=== PATIENT | female | born 1995 | race Caucasian/White ===

== ENCOUNTER 2016-11-21 12:54 | Emergency (ER) | payer OTHER ==
[2016-11-21 13:06] VITALS: BP 119/81
--- NOTE | 2016-11-21 13:53 | EDM.PDOC ---
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 She says she felt it travel up her arm. She has no open skin wounds or hunter. She has no chest pain or shortness of breath. 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 She' s had no problems since then. left upper arm Pain Score (Numeric/FACES): 10 - Related Data Allergies Allergy/AdvReac Type Severity Reaction Status Date / Time No Known Allergies Allergy Verified 11/21/16 13:06 Home Meds: Home Meds . [No Known Home Meds] 11/21/16 [History] Past Medical History - Past Surgical History Cardiovascular Surgical History: Reports: Other (See Below) Other Cardiovascular Surgeries/Procedures: surgical repair of "2 holes in my heart when I was little" Social & Family History - Family History Family Medical History: Noncontributory - Tobacco Use Smoking Status *Q: Never Smoker Second Hand Smoke Exposure: No - Caffeine Use Caffeine Use: Reports: Soda - Recreational Drug Use Recreational Drug Use: No Review of Systems - Review of Systems Review Of Systems: See Below Respiratory: Reports: No Symptoms. Denies: Shortness of Breath Cardiovascular: Reports: No Symptoms. Denies: Chest Pain, Lightheadedness GI/Abdominal: Reports: No Symptoms. Denies: Abdominal Pain, Nausea, Vomiting Musculoskeletal: Reports: Arm Pain Skin: Reports: No Symptoms. Denies: Wound, Burn(s) ED EXAM, GENERAL - Physical Exam Exam: See Below Exam Limited By: No Limitations General Appearance: Alert, WD/WN, No Apparent Distress Respiratory/Chest: No Respiratory Distress, Lungs Clear, Normal Breath Sounds, No Accessory Muscle Use, Chest Non-Tender Cardiovascular: Normal Peripheral Pulses, Regular Rate, Rhythm, No Edema, Systolic Murmur (05/03 ) GI/Abdominal: Normal Bowel Sounds, Soft, Non-Tender Extremities: Normal Inspection, Normal Range of Motion, Non-Tender, Arm Pain ( to forearm ). No: Slow Capillary Refill, Joint Swelling, Increased Warmth, Pallor, Redness Neurological: Alert, Oriented, Normal Cognition, No Motor/Sensory Deficits Skin Exam: Warm, Dry, Intact, Other (no skin hunter or wounds. no entrance or exit wounds appreciated. ) EKG INTERPRETATION EKG Date: 11/21/16 Time: 14:00 Rhythm: NSR Rate (Beats/Min): 63 [place]: Normal P-Wave: Present QRS: RBBB ST-T: Normal QT: Normal EKG Interpretation Comments: No acute ischemic changes. QTC is normal. Patient has no physical exam findings to indicate a severe electrical shock. EKG reveals RBBB but no ischemic changes or prolonged Qtc. Will discharge home. Course - Vital Signs Last Recorded V/S: Last Vital Signs Temp 97.8 F 11/21/16 12:55 Pulse 70 11/21/16 12:55 Resp 18 11/21/16 12:55 BP 119/81 11/21/16 12:55 Pulse Ox 100 11/21/16 12:55 - Orders/Labs/Meds Orders: Active Orders 24 hr Category Date Time Status EKG 12 Lead [EKG Documentation Completion] [RC] STAT Care 11/21/16 13:41 Active Departure - Departure Time of Disposition: 14:16 Disposition: Home, Self-Care 01 Condition: Good Clinical Impression: Electrical shock of hand Qualifiers: Encounter type: initial encounter Qualified Code(s): T75.4XXA - Electrocution, initial encounter - Discharge Information Instructions: Electric Shock Injury Referrals: PCP,None [Primary Care Provider] - Forms: ED Department Discharge Additional Instructions: Return to ER if you develop chest pain, palpitations or any additional concerns - My Orders Last 24 Hours: My Active Orders 11/21/16 13:41 EKG 12 Lead [EKG Documentation Completion] [RC] STAT - Assessment/Plan Last 24 Hours: My Active Orders 11/21/16 13:41 EKG 12 Lead [EKG Documentation Completion] [RC] STAT
== END 2016-11-21 14:46 | disposition home or self-care (01) ==
LOC: JD.ED 12:54
DX: T75.4XXA Electrocution, initial encounter (principal); Z98.890 Other specified postprocedural states; X58.XXXA Exposure to other specified factors, initial encounter; Y99.0 Civilian activity done for income or pay
CPT/HCPCS: 93005; 99282; 99285

== ENCOUNTER 2017-01-02 16:25 | Emergency (ER) | payer SELFPAY ==
[2017-01-02 16:45] VITALS: BP 110/69
[2017-01-02] MEDS ORDERED: Alum Hydrox/Mag Hydrox/Simeth 30 ML, Lidocaine 2% 15 ML PO ONE ×2 (17:13)
--- NOTE | 2017-01-02 17:14 | EDM.PDOC ---
ED HPI GENERAL MEDICAL PROBLEM - General Chief Complaint: Abdominal Pain Stated Complaint: Abdominal pain Time Seen by Provider: 01/02/17 17:00 Source of Information: Reports: Patient, RN Notes Reviewed History Limitations: Reports: No Limitations - History of Present Illness INITIAL COMMENTS - FREE TEXT/NARRATIVE: 21 year old female presents to the ED with complaints of abdominal pain, bloating and nausea. Symptoms have been intermittent and mild for some time however The pain has worsened over the past 12 hours. This morning she awoke with severe abdominal pain. She reports epigastric pain that radiated up into her chest and down throughout her entire abdomen. She has nausea but no vomiting or diarrhea. She has noticed that spicy food, dairy products, and fatty foods upset her stomach. She drinks large amounts of Mountain Dew everyday. She does not drink coffee. She denies alcohol use. She uses marijuana on a regular basis. When asked how much she smokes she replied "a lot." She has used marijuana for several years. She says the marijuana seems to help her symptoms. She denies improvement with hot showers or baths. She denies any additional drug use. She denies urinary symptoms. LMP is unknown. She is not on any forms of control. No previous abdominal surgeries. 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 Abdomen Pain Score (Numeric/FACES): 10 - Related Data Allergies Allergy/AdvReac Type Severity Reaction Status Date / Time No Known Allergies Allergy Verified 11/21/16 13:06 Home Meds: Home Meds Omeprazole 20 mg PO BID #28 cap.cr 01/02/17 [Rx] Sucralfate [Carafate] 1 gm PO QID #40 tablet 01/02/17 [Rx] Past Medical History 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 - Past Surgical History Cardiovascular Surgical History: Reports: Other (See Below) Other Cardiovascular Surgeries/Procedures: surgical repair of "2 holes in my heart when I was little" Social & Family History - Family History Family Medical History: Noncontributory - Tobacco Use Smoking Status *Q: Never Smoker Second Hand Smoke Exposure: No - Caffeine Use Caffeine Use: Reports: Soda - Recreational Drug Use Recreational Drug Use: No ED ROS GENERAL - Review of Systems Review Of Systems: See Below Constitutional: Reports: No Symptoms. Denies: Fever, Chills, Diaphoresis Respiratory: Reports: No Symptoms. Denies: Shortness of Breath Cardiovascular: Reports: No Symptoms. Denies: Chest Pain, Syncope GI/Abdominal: Reports: Abdominal Pain, Decreased Appetite, Distension, Nausea. Denies: Constipation, Diarrhea, Vomiting : Reports: No Symptoms. Denies: Dysuria, Flank Pain, Frequency ED EXAM, GI/ABD - Physical Exam Exam: See Below Exam Limited By: No Limitations General Appearance: Alert, WD/WN, No Apparent Distress Respiratory/Chest: No Respiratory Distress, Lungs Clear, Normal Breath Sounds, No Accessory Muscle Use, Chest Non-Tender Cardiovascular: Normal Peripheral Pulses, Regular Rate, Rhythm, Systolic Murmur GI/Abdominal Exam: Normal Bowel Sounds, Soft, No Organomegaly, No Distention, Tender (epigastric ), Other (mild tenderness over the entire abdomen, most significant to the epigastric region ). No: Guarding, Rigid, Rebound Back Exam: Normal Inspection, Full Range of Motion. No: CVA Tenderness (L), CVA Tenderness (R) Neurological: Alert, Oriented, Normal Cognition, No Motor/Sensory Deficits Course - Vital Signs Last Recorded V/S: Last Vital Signs Temp 98.1 F 01/02/17 16:36 Pulse 72 01/02/17 16:36 Resp 18 01/02/17 16:36 BP 110/69 01/02/17 16:36 Pulse Ox 100 01/02/17 16:36 - Orders/Labs/Meds Orders: Active Orders 24 hr Category Date Time Status HCG QUALITATIVE,URINE [URCHEM] Stat Lab 01/02/17 17:13 Uncollected UA W/MICROSCOPIC [URIN] Stat Lab 01/02/17 17:13 Uncollected Labs: Laboratory Tests 01/02/17 01/02/17 01/02/17 Range/Units 17:58 17:58 17:58 WBC 5.31 (3.98-10.04) K/mm3 RBC 3.88 L (3.98-5.22) M/mm3 Hgb 11.3 (11.2-15.7) gm/L Hct 32.2 L (34.1-44.9) % MCV 83.0 (79.4-94.8) fl MCH 29.1 (25.6-32.2) pg MCHC 35.1 (32.2-35.5) g/dl RDW Std Deviation 37.2 (36.4-46.3) fL Plt Count 176 L (182-369) K/mm3 MPV 10.2 (9.4-12.3) fl Neut % (Auto) 64.2 (34.0-71.1) % Lymph % (Auto) 21.7 (19.3-51.7) % [place] % (Auto) 12.4 (4.7-12.5) % Eos % (Auto) 1.3 (0.7-5.8) Baso % (Auto) 0.2 (0.1-1.2) % Neut # (Auto) 3.41 (1.56-6.13) K/mm3 Lymph # (Auto) 1.15 L (1.18-3.74) K/mm3 [place] # (Auto) 0.66 H (0.24-0.36) K/mm3 Eos # (Auto) 0.07 (0.04-0.36) K/mm3 Baso # (Auto) 0.01 (0.01-0.08) K/mm3 Sodium 140 (136-145) mEq/L Potassium 3.4 L (3.5-5.1) mEq/L Chloride 106 (98-107) mEq/L Carbon Dioxide 24 (21-32) mEq/L Anion Gap 13.4 (5-15) BUN 7 (7-18) mg/dL Creatinine 0.6 (0.55-1.02) mg/dL Est Cr Clr Drug Dosing 156.30 mL/min Estimated GFR (MDRD) > 60 (>60) mL/min BUN/Creatinine Ratio 11.7 L (14-18) Glucose 95 (74-106) mg/dL Calcium 9.2 (8.5-10.1) mg/dL Total Bilirubin 0.7 (0.2-1.0) mg/dL AST 10 L (15-37) U/L ALT 20 (14-59) U/L Alkaline Phosphatase 53 (46-116) U/L C-Reactive Protein < 0.2 (<1.0) mg/dL Total Protein 6.5 (6.4-8.2) g/dl Albumin 4.0 (3.4-5.0) g/dl Globulin 2.5 gm/dL Albumin/Globulin Ratio 1.6 (1-2) Lipase 71 L (73-393) U/L H. pylori IgG Antibody Negative (NEGATIVE) Meds: Medications Discontinued Medications Generic Name Dose Route Start Last Admin Trade Name Christopher PRN Reason Stop Dose Admin Al Hydroxide/Mg Hydroxide 30 0 ml 01/02/17 17:13 01/02/17 17:24 ml/ Lidocaine HCl 15 ml PO 01/02/17 17:14 45 ml ONETIME ONE Administration Ketorolac Tromethamine 60 mg 01/02/17 19:18 01/02/17 20:05 Toradol IM 01/02/17 19:19 60 mg ONETIME ONE Administration Pantoprazole Sodium 40 mg 01/02/17 19:20 01/02/17 20:05 Protonix PO 01/02/17 19:21 40 mg ONETIME ONE Administration - Re-Assessments/Exams Free Text/Narrative Re-Assessment/Exam: CBC and CMP are unremarkable. CRP WNL. Lipase WNL. H Pylori is negative. Acute findings ruled out at this time. Patient was given GI cocktail and reported worsening of pain. She was then given Toradol and Protonix. She has moderate improvement with this. We added carafate prior to discharge. Patient will be referred to our clinic to establish care and follow-up regarding her abdominal pain. Will start her on omeprazole 20mg PO BID x14 days and carafate 1 gm PO QID for gastritis symptoms. She was instructed to f/u in the clinic for further evaluation and management of her abdominal pain. If she does not improve with the omeprazole and carafate, I would recommend gallbladder ultrasound at that time. Encouraged to return with any new or worsening symptoms. Educated on return precautions. I encouraged her to refrain from marijuana use as it may be contributing to her symptoms. Discharge instructions Departure - Departure Time of Disposition: 19:29 Disposition: Home, Self-Care 01 Condition: Good Clinical Impression: Gastritis Qualifiers: Gastritis type: unspecified gastritis Chronicity: acute Gastritis bleeding: without bleeding Qualified Code(s): K29.00 - Acute gastritis without bleeding - Discharge Information Prescriptions: Omeprazole 20 mg PO BID #28 cap.cr Sucralfate [Carafate] 1 gm PO QID #40 tablet Referrals: PCP,None [Primary Care Provider] - Forms: ED Department Discharge Additional Instructions: Your prescriptions were sent to [facility] 1. Omeprazole 20mg twice a day for two weeks 2. Carafate 1 tab 4 times a day, take before meals and at bedtime Avoid caffeine, soda, coffee, spicy foods, and acidic foods. Avoid Ibuprofen and Aleve. Use Tylenol or Pepto-bismol as needed for pain not relieved by above medications. Eat a bland diet Return to ER with new or worsening symptoms Follow-up in the clinic next week for recheck. Recommend Monica De Los Santos or Yadi Chung. Call [phone] to schedule an appointment for Friday or Friday Consider refraining from marijuana use. - My Orders Last 24 Hours: My Active Orders 01/02/17 17:13 HCG QUALITATIVE,URINE [URCHEM] Stat UA W/MICROSCOPIC [URIN] Stat - Assessment/Plan Last 24 Hours: My Active Orders 01/02/17 17:13 HCG QUALITATIVE,URINE [URCHEM] Stat UA W/MICROSCOPIC [URIN] Stat
[2017-01-02] MEDS ORDERED: Ketorolac 60 MG/2 ML SDV IM ONE (19:18)
[2017-01-02] MEDS ORDERED: Pantoprazole 40 MG Tab.CR PO ONE (19:20)
[2017-01-02] MEDS ORDERED: Sucralfate Suspension 1 GM/10 ML Cup PO ONE (20:40)
== END 2017-01-02 20:58 | disposition home or self-care (01) ==
LOC: JD.ED 16:25
DX: K29.00 Acute gastritis without bleeding (principal)
CPT/HCPCS: 36415; 80053; 83690; 85025; 86140; 86677; 96372; 99284; A9270; J1885; 99283

== ENCOUNTER 2017-01-03 11:10 | Emergency (ER) | payer SELFPAY ==
[2017-01-03 11:31] VITALS: BP 117/64
[2017-01-03] MEDS ORDERED: Sodium Chloride 0.9% 10 ML Syringe FLUSH PRN (12:00)
[2017-01-03] MEDS ORDERED: Lactated Ringers 1,000 ML IV ONE (12:02)
[2017-01-03] MEDS ORDERED: Ondansetron 4 MG/2 ML SDV IVPUSH ONE (12:02)
--- NOTE | 2017-01-03 12:38 | EDM.PDOC ---
ED HPI GENERAL MEDICAL PROBLEM - General Chief Complaint: Gastrointestinal Problem Stated Complaint: VOMITING NOT BETTER Time Seen by Provider: 01/03/17 12:29 Source of Information: Reports: Patient, Old Records (recent ER visit) History Limitations: Reports: No Limitations - History of Present Illness INITIAL COMMENTS - FREE TEXT/NARRATIVE: Brandon prieto presents for abdominal discomfort, nausea and vomiting. Patient reports that the symptoms first started yesterday. She was seen in the ER yesterday. Labs were performed and were essentially normal. She was given a GI cocktail, Protonix and Toradol. She was sent home on Prilosec and Carafate. Patient reports that she went home and took the Carafate as prescribed. She states after the carafate she developed severe nausea and vomiting. She has vomited proximally 30-40 times since leaving the ER last night. She is currently complaining of her abdomen burning, located across her entire abdomen but worse in the right and left upper quadrants and epigastric area. Reports associated symptoms of chills and diaphoresis. States that she feels very warm but has not taken her temperature has no confirmed fever. No diarrhea. Last bowel movement was last night. She denies any history of any stomach problems. No history of abdominal surgeries. No history of any allergies. No ill contacts. No recent travel. Unsure of her last menstrual period, possibly last month. She's not any oral contraceptives. Reports that she smokes marijuana quite frequently. Last marijuana usage was about 2 or 3 days ago. Abdomen Pain Score (Numeric/FACES): 10 - Related Data Allergies Allergy/AdvReac Type Severity Reaction Status Date / Time No Known Allergies Allergy Verified 01/03/17 11:26 Home Meds: Home Meds Omeprazole 20 mg PO BID #28 cap.cr 01/02/17 [Rx] Sucralfate [Carafate] 1 gm PO QID #40 tablet 01/02/17 [Rx] Past Medical History - Past Health History Medical/Surgical History: Denies Medical/Surgical History 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 - Past Surgical History Cardiovascular Surgical History: Reports: Other (See Below) Other Cardiovascular Surgeries/Procedures: surgical repair of "2 holes in my heart when I was little" Social & Family History - Family History Family Medical History: Noncontributory - Tobacco Use Smoking Status *Q: Unknown Ever Smoked Second Hand Smoke Exposure: No - Caffeine Use Caffeine Use: Reports: Soda - Recreational Drug Use Recreational Drug Use: No ED ROS GENERAL - Review of Systems Review Of Systems: See Below Constitutional: Reports: Chills, Diaphoresis. Denies: Fever GI/Abdominal: Reports: Abdominal Pain, Nausea, Vomiting. Denies: Diarrhea ED EXAM, GI/ABD - Physical Exam Exam: See Below Exam Limited By: No Limitations General Appearance: Alert, WD/WN, No Apparent Distress, Thin Respiratory/Chest: No Respiratory Distress, Lungs Clear, Normal Breath Sounds Cardiovascular: Normal Peripheral Pulses, Regular Rate, Rhythm, No Murmur GI/Abdominal Exam: Normal Bowel Sounds, Soft, Non-Tender Neurological: Alert, Oriented, Normal Cognition Psychiatric: Normal Affect, Normal Mood Skin Exam: Warm, Dry, Normal Color Course - Vital Signs Last Recorded V/S: Last Vital Signs Temp 36.4 C 01/03/17 11:21 Pulse 87 01/03/17 11:21 Resp 16 01/03/17 11:21 BP 117/64 01/03/17 11:21 Pulse Ox 100 01/03/17 11:21 Orthostatic Blood Pressure [ 120/81 Standing] Orthostatic Blood Pressure [ 118/74 Sitting] Orthostatic Blood Pressure [ 117/64 Supine] - Orders/Labs/Meds Orders: Active Orders 24 hr Category Date Time Status Peripheral IV Care [RC] . DIRECTED Care 01/03/17 12:01 Active Peripheral IV Insertion Adult [OM.PC] Routine Oth 01/03/17 11:44 Ordered Labs: Laboratory Tests 01/03/17 01/03/17 01/03/17 Range/Units 12:11 12:17 12:17 WBC 8.32 (3.98-10.04) K/mm3 RBC 4.33 (3.98-5.22) M/mm3 Hgb 12.7 (11.2-15.7) gm/L Hct 35.8 (34.1-44.9) % MCV 82.7 (79.4-94.8) fl MCH 29.3 (25.6-32.2) pg MCHC 35.5 (32.2-35.5) g/dl RDW Std Deviation 37.2 (36.4-46.3) fL Plt Count 197 (182-369) K/mm3 MPV 10.2 (9.4-12.3) fl Neutrophils % (Manual) 78 H (40-60) % Band Neutrophils % 0 (0-10) % Lymphocytes % (Manual) 10 L (20-40) % Atypical Lymphs % 6 % Monocytes % (Manual) 6 (2-10) % Eosinophils % (Manual) 0 L (0.7-5.8) % Basophils % (Manual) 0 L (0.1-1.2) Platelet Estimate Adequate Hypochromasia 1+ slight Anisocytosis 1+ slight RBC Morph Comment Abnormal Sodium (136-145) mEq/L Potassium (3.5-5.1) mEq/L Chloride (98-107) mEq/L Carbon Dioxide (21-32) mEq/L Anion Gap (5-15) BUN (7-18) mg/dL Creatinine (0.55-1.02) mg/dL Est Cr Clr Drug Dosing mL/min Estimated GFR (MDRD) (>60) mL/min BUN/Creatinine Ratio (14-18) Glucose (74-106) mg/dL Calcium (8.5-10.1) mg/dL Total Bilirubin (0.2-1.0) mg/dL AST (15-37) U/L ALT (14-59) U/L Alkaline Phosphatase (46-116) U/L C-Reactive Protein (<1.0) mg/dL Total Protein (6.4-8.2) g/dl Albumin (3.4-5.0) g/dl Globulin gm/dL Albumin/Globulin Ratio (1-2) Lipase 76 (73-393) U/L HCG, Qual (NEGATIVE) HCG, Quant 89337.0 mIU/mL Urine Color (Yellow) Urine Appearance (Clear) Urine pH (5.0-8.0) Ur Specific [place] (1.005-1.030) Urine Protein (Negative) Urine Glucose (UA) (Negative) Urine Ketones (Negative) Urine Occult Blood (Negative) Urine Nitrite (Negative) Urine Bilirubin (Negative) Urine Urobilinogen (0.2-1.0) Ur Leukocyte Esterase (Negative) Urine RBC (0-5) /hpf Urine WBC (0-5) /hpf Ur Epithelial Cells (0-5) /hpf Urine Bacteria (FEW) /hpf Urine Mucus (FEW) /hpf 01/03/17 01/03/17 01/03/17 Range/Units 12:17 12:17 12:37 WBC (3.98-10.04) K/mm3 RBC (3.98-5.22) M/mm3 Hgb (11.2-15.7) gm/L Hct (34.1-44.9) % MCV (79.4-94.8) fl MCH (25.6-32.2) pg MCHC (32.2-35.5) g/dl RDW Std Deviation (36.4-46.3) fL Plt Count (182-369) K/mm3 MPV (9.4-12.3) fl Neutrophils % (Manual) (40-60) % Band Neutrophils % (0-10) % Lymphocytes % (Manual) (20-40) % Atypical Lymphs % % Monocytes % (Manual) (2-10) % Eosinophils % (Manual) (0.7-5.8) % Basophils % (Manual) (0.1-1.2) Platelet Estimate Hypochromasia Anisocytosis RBC Morph Comment Sodium 139 (136-145) mEq/L Potassium 3.8 (3.5-5.1) mEq/L Chloride 104 (98-107) mEq/L Carbon Dioxide 25 (21-32) mEq/L Anion Gap 13.8 (5-15) BUN 9 (7-18) mg/dL Creatinine 0.6 (0.55-1.02) mg/dL Est Cr Clr Drug Dosing 128.52 mL/min Estimated GFR (MDRD) > 60 (>60) mL/min BUN/Creatinine Ratio 15.0 (14-18) Glucose 106 (74-106) mg/dL Calcium 10.0 (8.5-10.1) mg/dL Total Bilirubin 1.2 H (0.2-1.0) mg/dL AST 13 L (15-37) U/L ALT 15 (14-59) U/L Alkaline Phosphatase 61 (46-116) U/L C-Reactive Protein < 0.2 (<1.0) mg/dL Total Protein 7.6 (6.4-8.2) g/dl Albumin 4.7 (3.4-5.0) g/dl Globulin 2.9 gm/dL Albumin/Globulin Ratio 1.6 (1-2) Lipase (73-393) U/L HCG, Qual Positive H (NEGATIVE) HCG, Quant mIU/mL Urine Color Yellow (Yellow) Urine Appearance Slt cloudy H (Clear) Urine pH 6.5 (5.0-8.0) Ur Specific [place] > or = 1.030 (1.005-1.030) Urine Protein 2+ H (Negative) Urine Glucose (UA) Negative (Negative) Urine Ketones 3+ H (Negative) Urine Occult Blood Negative (Negative) Urine Nitrite Negative (Negative) Urine Bilirubin Negative (Negative) Urine Urobilinogen 1.0 (0.2-1.0) Ur Leukocyte Esterase Negative (Negative) Urine RBC 0-5 (0-5) /hpf Urine WBC 10-20 H (0-5) /hpf Ur Epithelial Cells 10-20 H (0-5) /hpf Urine Bacteria Few (FEW) /hpf Urine Mucus Many H (FEW) /hpf Meds: Medications Discontinued Medications Generic Name Dose Route Start Last Admin Trade Name Freq PRN Reason Stop Dose Admin Lactated Ringer's 1,000 mls @ 999 mls/hr 01/03/17 12:02 01/03/17 12:15 Ringers, Lactated IV 01/03/17 13:02 999 mls/hr .BOLUS ONE Administration Ondansetron HCl 4 mg 01/03/17 12:02 01/03/17 12:15 Zofran IVPUSH 01/03/17 12:03 4 mg ONETIME ONE Administration Sodium Chloride 10 ml 01/03/17 12:00 01/03/17 12:16 Saline Flush FLUSH 10 ml ASDIRECTED PRN Administration Keep Vein Open - Re-Assessments/Exams Free Text/Narrative Re-Assessment/Exam: 01/03/17 14:00 Labs returned. HCG quant added once the hcg returned positive. Informed patient of lab results. Feels greatly improved after IV fluids and nausea medication. I will have her get a medication similar to diclegis from [facility]. Follow-up with OB due to her severe nausea and vomiting. Discharge instructions as documented. Departure - Departure Time of Disposition: 14:02 Disposition: Home, Self-Care 01 Condition: Fair Clinical Impression: - Discharge Information Instructions: First Trimester of , [id number] Referrals: PCP,None [Primary Care Provider] - Joana Barton MD [Physician] - Forms: ED Department Discharge Additional Instructions: Rx for doxylamine- pyridoxine-janneth root 1050-100 #30 written Stop the omeprazole. You may continue with the Carafate. This medication is design to line the inside stomach and should help with some of the gastritis you are experiencing. Follow up with OB next week. Recommend Dr. Barton. Call [phone] to schedule with her. A sure you're drinking plenty of fluids. Recommend drinking about half your body weight in ounces in fluid every day. Avoid ibuprofen, NSAIDs, Aleve, aspirin and Excedrin or you're . may take [id number] Tylenol as needed for pain. Avoid using alcohol, tobacco products and any illicit drugs or you are . Go to [facility] pharmacy for your prescription. It especially compounded there. may take 1 tab at bedtime. Can increase up to 3 times a day as needed for nausea. Please return to the ER if your symptoms change or worsen. - My Orders Last 24 Hours: My Active Orders 01/03/17 11:44 Peripheral IV Insertion Adult [OM.PC] Routine 01/03/17 12:01 Peripheral IV Care [RC] . DIRECTED - Assessment/Plan Last 24 Hours: My Active Orders 01/03/17 11:44 Peripheral IV Insertion Adult [OM.PC] Routine 01/03/17 12:01 Peripheral IV Care [RC] . DIRECTED
== END 2017-01-03 14:18 | disposition home or self-care (01) ==
LOC: JD.ED 11:10
DX: O21.9 Vomiting of pregnancy, unspecified (principal); R10.9 Unspecified abdominal pain
CPT/HCPCS: 36415; 80053; 81001; 83690; 84702; 84703; 85025; 86140; 96361; 96374; 99284; J2405; J7050; J7120; 99283

== ENCOUNTER 2017-02-03 12:20 | Emergency (ER) | payer MEDICAID ==
[2017-02-03] MEDS ORDERED: Sodium Chloride 0.9% 1,000 ML IV ONE (13:01)
[2017-02-03] MEDS ORDERED: Sodium Chloride 0.9% 10 ML Syringe FLUSH PRN (13:01)
[2017-02-03] MEDS ORDERED: Ondansetron 4 MG/2 ML SDV IVPUSH ONE (13:01)
[2017-02-03] MEDS ORDERED: HYDROmorphone 0.5 MG/0.5 ML Syringe IVPUSH ONE (13:02)
--- NOTE | 2017-02-03 13:18 | EDM.PDOC ---
ED HPI GENERAL MEDICAL PROBLEM - General Chief Complaint: Abdominal Pain Stated Complaint: ABD PAIN, 9 WEEKS PREG Time Seen by Provider: 02/03/17 12:44 Source of Information: Reports: Patient History Limitations: Reports: No Limitations - History of Present Illness INITIAL COMMENTS - FREE TEXT/NARRATIVE: Patient is 21-year-old female who presents to the ED complaining of left lower abdominal/upper quadrant abdominal pain, and epigastric discomfort. Pain radiates into her low back. She is approximately 9 weeks . This was confirmed by clinical evaluation by Dr. 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 She also had an ultrasound revealing an single intrauterine . She admits to poor appetite secondary to morning sickness. Has a prescription for zofran 4mg ODT to which she has not filled for unclear reason. Denies fever/chills, chest pain, shortness of breath, dysuria, dizziness, abnormal vaginal discharge, or any additional complaints. 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 Denies: Fever, Chills HEENT: Reports: No Symptoms Respiratory: Denies: Shortness of Breath, Cough, Sputum Cardiovascular: Denies: Chest Pain, Dyspnea on Exertion, Palpitations GI/Abdominal: Reports: Abdominal Pain (Left lower quadrant/upper quadrant/ epigastric region), Decreased Appetite, Nausea, Vomiting. Denies: Black Stool, Bloody Stool, Constipation, Diarrhea, Difficulty Swallowing, Distension, Flatus , Hematemesis, Hematochezia, Melena : Reports: Flank Pain (Left). Denies: Discharge, Dysuria, Frequency, Hematuria, Pain, Urgency, Urinary Retention Musculoskeletal: Reports: Back Pain (Left low back pain) Neurological: Denies: Dizziness, Headache, Numbness, Tingling, Difficulty Walking, Weakness ED EXAM - Physical Exam Exam: See Below Exam Limited By: No Limitations General Appearance: Alert, WD/WN, No Apparent Distress Ears: Hearing Grossly Normal Nose: Normal Inspection Throat/Mouth: Normal Voice, No Airway Compromise Neck: Normal Inspection, Supple Respiratory/Chest: No Respiratory Distress, Lungs Clear, Normal Breath Sounds, No Accessory Muscle Use Cardiovascular: Normal Peripheral Pulses, Regular Rate, Rhythm GI/Abdominal Exam: Soft, No Organomegaly, No Distention, Abnormal Bowel Sounds ( Hyperactive), Other (Mild tenderness noted to the left adnexal region, left lower quadrant, left upper quadrant, and epigastric region.) Back Exam: Normal Inspection, Full Range of Motion. No: CVA Tenderness (L), CVA Tenderness (R) Neurological: Alert, Oriented, CN II-XII Intact, Normal Cognition, No Motor/ Sensory Deficits Psychiatric: Normal Affect, Normal Mood Skin Exam: Warm, Dry, Intact, Normal Color Course - Vital Signs Last Recorded V/S: Last Vital Signs Temp 97.4 F 02/03/17 12:29 Pulse 80 02/03/17 15:30 Resp 16 02/03/17 15:30 BP 110/60 02/03/17 15:30 Pulse Ox 100 02/03/17 15:30 - Orders/Labs/Meds Orders: Active Orders 24 hr Category Date Time Status Peripheral IV Care [RC] . DIRECTED Care 02/03/17 13:01 Active CULTURE URINE [RM] Stat Lab 02/03/17 14:25 Ordered Peripheral IV Insertion Adult [OM.PC] Stat Oth 02/03/17 13:01 Ordered Labs: Laboratory Tests 02/03/17 02/03/17 02/03/17 Range/Units 13:20 13:20 14:25 WBC 6.45 (3.98-10.04) K/mm3 RBC 4.48 (3.98-5.22) M/mm3 Hgb 13.4 (11.2-15.7) gm/L Hct 38.0 (34.1-44.9) % MCV 84.8 (79.4-94.8) fl MCH 29.9 (25.6-32.2) pg MCHC 35.3 (32.2-35.5) g/dl RDW Std Deviation 44.5 (36.4-46.3) fL Plt Count 190 (182-369) K/mm3 MPV 9.9 (9.4-12.3) fl Neut % (Auto) 74.1 H (34.0-71.1) % Lymph % (Auto) 15.0 L (19.3-51.7) % [place] % (Auto) 9.3 (4.7-12.5) % Eos % (Auto) 1.2 (0.7-5.8) Baso % (Auto) 0.2 (0.1-1.2) % Neut # (Auto) 4.78 (1.56-6.13) K/mm3 Lymph # (Auto) 0.97 L (1.18-3.74) K/mm3 [place] # (Auto) 0.60 H (0.24-0.36) K/mm3 Eos # (Auto) 0.08 (0.04-0.36) K/mm3 Baso # (Auto) 0.01 (0.01-0.08) K/mm3 Sodium 139 (136-145) mEq/L Potassium 3.7 (3.5-5.1) mEq/L Chloride 105 (98-107) mEq/L Carbon Dioxide 23 (21-32) mEq/L Anion Gap 14.7 (5-15) BUN 2 L (7-18) mg/dL Creatinine 0.5 L (0.55-1.02) mg/dL Est Cr Clr Drug Dosing 167.07 mL/min Estimated GFR (MDRD) > 60 (>60) mL/min BUN/Creatinine Ratio 4.0 L (14-18) Glucose 87 (74-106) mg/dL Calcium 9.5 (8.5-10.1) mg/dL Total Bilirubin 0.7 (0.2-1.0) mg/dL AST 15 (15-37) U/L ALT 17 (14-59) U/L Alkaline Phosphatase 53 (46-116) U/L C-Reactive Protein < 0.2 (<1.0) mg/dL Total Protein 7.3 (6.4-8.2) g/dl Albumin 4.3 (3.4-5.0) g/dl Globulin 3.0 gm/dL Albumin/Globulin Ratio 1.4 (1-2) Lipase 100 (73-393) U/L TSH 3rd Generation 0.464 L (0.516-4.13) uIU/mL HCG, Quant 374483.0 mIU/mL Urine Color Yellow (Yellow) Urine Appearance Clear (Clear) Urine pH 7.5 (5.0-8.0) Ur Specific [place] 1.025 (1.005-1.030) Urine Protein Negative (Negative) Urine Glucose (UA) Negative (Negative) Urine Ketones 1+ H (Negative) Urine Occult Blood Trace-intact H (Negative) Urine Nitrite Negative (Negative) Urine Bilirubin Negative (Negative) Urine Urobilinogen 0.2 (0.2-1.0) Ur Leukocyte Esterase 1+ H (Negative) Urine RBC 0-5 (0-5) /hpf Urine WBC 10-20 H (0-5) /hpf Ur Epithelial Cells 5-10 H (0-5) /hpf Urine Bacteria Moderate H (FEW) /hpf Urine Mucus Moderate H (FEW) /hpf Meds: Medications Discontinued Medications Generic Name Dose Route Start Last Admin Trade Name Freq PRN Reason Stop Dose Admin Hydromorphone HCl 0.25 mg 02/03/17 13:02 02/03/17 13:27 Dilaudid IVPUSH 02/03/17 13:03 0.25 mg ONETIME ONE Administration Sodium Chloride 1,000 mls @ 999 mls/hr 02/03/17 13:01 02/03/17 13:23 Normal Saline IV 02/03/17 14:01 999 mls/hr ONETIME ONE Administration Ondansetron HCl 4 mg 02/03/17 13:01 02/03/17 13:25 Zofran IVPUSH 02/03/17 13:02 4 mg ONETIME ONE Administration Sodium Chloride 10 ml 02/03/17 13:01 02/03/17 13:20 Saline Flush FLUSH 10 ml ASDIRECTED PRN Administration Keep Vein Open - Re-Assessments/Exams Free Text/Narrative Re-Assessment/Exam: Reviewed ultrasound that was obtained January 27, 2017 Findings: [place] intrauterine with heart rate of 170 beats minute. Estimated gestational age is 9 weeks and 0 days based on crown-rump length measurements of 2.25 cm. Mildly prominent implantation bleed adjacent to the questionable sac on the right measuring up to 1.2 x 2.4 x 2.8 cm. If indicated close interval follow-up may be helpful to assess stability. Gestational sac, yolk sac , pole are otherwise grossly normal in appearance. Right ovary is grossly normal in appearance. Left ovary was not able to be visualized on today's exam. Labs reviewed: CBC and chem 14 essentially normal. CRP less than 0.2, lipase 100 , TSH 0.464, hCG quantitative is 139,500. UA positive for ketones, trace blood, leukocyte Estrace, urine rbc's 10-20, urine epithelial cells 5-10, urine bacteria moderate, urine mucus moderate. UA appears contaminated. Will order a urine culture since patient is . She has no dysuria at this time. 1514 Reassessment, patient is feeling much better after the above therapies. Will discharge patient home with instructions as documented. No ultrasound be obtained at this time. Departure - Departure Time of Disposition: 15:19 Disposition: Home, Self-Care 01 Condition: Good Clinical Impression: Abdominal pain Qualifiers: Abdominal location: left lower quadrant Qualified Code(s): R10.32 - Left lower quadrant pain - Discharge Information Instructions: Nausea and Vomiting, Adult, [id number] Referrals: Sharyn Sampson MD [Physician] - Forms: ED Department Discharge Additional Instructions: Labs and UA did not reveal any concerning findings. Etiology abdominal discomfort could be related to constipation and/or round ligament stretching. Do not believe is related to ovarian torsion which is twisting of the ovary due to minimal discomfort with palpation to the adnexal region and resolution of discomfort with the above therapies. Thus I recommend taking MiraLAX one capful every day with copious amounts of water for the duration of the to loosen your stools. Take Tylenol as needed 650 mg every 4-6 hours for abdominal discomfort. Refill your prescription for Zofran and take as prescribed. Push the fluids. Eat a balanced diet. Start taking vitamins. See your OB/ DIRECTOR COMMERCIAL SALES specialist this coming week for reevaluation. Return to ED for any new or worsening symptoms. - My Orders Last 24 Hours: My Active Orders 02/03/17 13:01 Peripheral IV Care [RC] . DIRECTED Peripheral IV Insertion Adult [OM.PC] Stat 02/03/17 14:25 CULTURE URINE [RM] Stat - Assessment/Plan Last 24 Hours: My Active Orders 02/03/17 13:01 Peripheral IV Care [RC] . DIRECTED Peripheral IV Insertion Adult [OM.PC] Stat 02/03/17 14:25 CULTURE URINE [RM] Stat
[2017-02-03 16:01] VITALS: BP 110/60
== END 2017-02-03 15:35 | disposition home or self-care (01) ==
LOC: JD.ED 12:20
DX: O99.89 Other specified diseases and conditions complicating pregnancy, childbirth and the puerperium (principal); R10.32 Left lower quadrant pain; Z3A.09 9 weeks gestation of pregnancy
CPT/HCPCS: 36415; 80053; 81001; 83690; 84443; 84702; 85025; 86140; 87086; 96361; 96374; 96375; 99284; J1170; J2405; J7040; J7050

== ENCOUNTER 2017-02-20 23:07 | Emergency (ER) | payer MEDICAID ==
[2017-02-20] MEDS ORDERED: Acetaminophen 325 MG Tab PO ONE (23:33)
--- NOTE | 2017-02-20 23:33 | EDM.PDOC ---
ED HPI GENERAL MEDICAL PROBLEM - General Chief Complaint: Head Injury Stated Complaint: FELL HIT HEAD/12WKS PG Time Seen by Provider: 02/20/17 23:26 Source of Information: Reports: Patient History Limitations: Reports: No Limitations - History of Present Illness INITIAL COMMENTS - FREE TEXT/NARRATIVE: 21-year-old female presents to the ED after tripping and falling in the basement of her own home. She got up from the bed and apparently tried to avoid stepping on a cat lost her balance and struck a wall with the back of her right head. There was no loss of consciousness and is been no nausea and vomiting. She has a headache at present. She has full range of motion of her neck although it's a little stiff and sore. She fell against her left side and friends became concerned that she may have injured her . She is clinically 12 weeks with an estimated date of confinement of September 01 by ultrasound. She's had no vaginal bleeding and did not take a direct blow to the abdomen. Irregardless the uterus is still primarily a pelvic organ at this stage. Examination shows a minimal scalp contusion tenderness to the right occipital scalp. Full range of motion of her neck. Treated with Tylenol 975 mg by mouth and she may take 650 mg every 6 hours when necessary for headache relief as needed. Advised ice pack to the area for one half hour of every 4 hours for today and tomorrow. Standard reassured no injury to the has occurred. Minor closed head injury precaution notes given in the discharge. Onset: Today Onset Date: 02/20/17 Onset Time: 23:00 Duration: Minutes: Location: Reports: Head, Pelvis, Upper Extremity, Left (Left pelvis) Quality: Reports: Ache, Throbbing Severity: Moderate Improves with: Reports: None Worsens with: Reports: None Context: Reports: Trauma (Tripped and fell after getting up from a bed lost her balance and struck a wall with her occipital scalp on the right side.) Associated Symptoms: Reports: Headaches. 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.) Headache Pain Score (Numeric/FACES): 8 - Related Data Allergies Allergy/AdvReac Type Severity Reaction Status Date / Time bismuth subsalicylate Allergy Vomiting Verified 02/20/17 23:24 [From Pepto-Bismol] Home Meds: Home Meds Vits #93/Iron Fum/FA [ Formula Tablet] 1 tab PO DAILY 02/03/17 [History] Past Medical History - Past Health History Medical/Surgical History: Denies Medical/Surgical History 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 Gastrointestinal History: Reports: Other (See Below) Other Gastrointestinal History: history gastritis 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: - Past Surgical History Cardiovascular Surgical History: Reports: Other (See Below) Other Cardiovascular Surgeries/Procedures: 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 Denies: Fever, Chills, Weight Loss HEENT: Reports: No Symptoms. Denies: Glasses Respiratory: Reports: No Symptoms Cardiovascular: Reports: No Symptoms Endocrine: Reports: Fatigue GI/Abdominal: Reports: Abdominal Pain (Occasional abdominal pains tend to come and go) : Reports: Frequency Musculoskeletal: Reports: Back Pain Skin: Reports: No Symptoms (Mild low back pain) Neurological: Reports: Headache Psychiatric: Reports: No Symptoms Hematologic/Lymphatic: Reports: No Symptoms Immunologic: Reports: No Symptoms ED EXAM, HEAD INJURY - Physical Exam Exam: See Below Exam Limited By: No Limitations General Appearance: Alert, WD/WN, Anxious, Mild Distress Head: Normocephalic, Scalp Swelling, Scalp Hematoma, Scalp Tenderness (3 cm in diameter. Relatively superficial. Moderate over the right). No: Scalp Lacerations, Scalp Abrasions, Scalp Ecchymosis (Mild over the right occipital scalp.), Active Bleeding, Esteban's Sign ( occipital scalp.), Flap, Facial Abrasions, Facial Ecchymosis, Facial Lacerations, Facial Swelling, Sinus Tenderness, Facial Tenderness Nexus Criteria: No: Posterior, Midline Cervical Tenderness, Evidence of Intoxication, Altered Level of Consciousness, Focal Neurological Deficit, Painful Distraction Injuries Eyes: Bilateral Eye: Normal Inspection, PERRL Ears: Normal TMs Throat/Mouth: Normal Inspection, Normal Lips, Normal Teeth, Normal Oropharynx, Other (No injury to the tongue.) Neck: Full Range of Motion, Normal Alignment, Normal Inspection, Painful Range of Motion (Mild on full chin on chest position and full extension. Range of motion however is full.). No: Muscle Spasm Respiratory: No Respiratory Distress, Lungs Clear, Normal Breath Sounds, No Accessory Muscle Use, Other Cardiovascular: Normal Peripheral Pulses, Regular Rate, Rhythm, No Edema, No Murmur GI/Abdominal Exam: Normal Bowel Sounds, Soft, Non-Tender, No Organomegaly, No Distention, No Abnormal Bruit, Other (Palpable gravid uterus above the pubic symphysis. Appears to be a bit larger for dates then what she has provided.) Back Exam: Normal Inspection, Full Range of Motion. No: CVA Tenderness (L), CVA Tenderness (R) Extremities: Normal Inspection, Normal Range of Motion, Non-Tender, No Pedal Edema Neurologic: No Motor/Sensory Deficits, Alert, Normal Mood/Affect, Oriented x 3 Course - Vital Signs Last Recorded V/S: Last Vital Signs Temp 36.4 C 02/20/17 23:20 Pulse 80 02/20/17 23:20 Resp 16 02/20/17 23:20 BP Pulse Ox 100 02/20/17 23:20 - Orders/Labs/Meds Meds: Medications Discontinued Medications Generic Name Dose Route Start Last Admin Trade Name Freq PRN Reason Stop Dose Admin Acetaminophen 975 mg 02/20/17 23:33 Tylenol PO 02/20/17 23:34 NOW ONE - Radiology Interpretation Free Text/Narrative:: 21-year-old female presents to the ED for evaluation of closed head injury when she tripped and fell lost her balance at home striking a sheet rock to wall. She hit the back of her right occipital head. There was no loss of consciousness there's been no nausea vomiting. She has a moderate headache at this time she fell against her left side and because she is 12 weeks her friends were concerned that she may have injured the . On examination she has a gravid uterus just palpable pubic symphysis Doppler heart tones are normal in the 160s. Benign abdominal examination. Patient reassured .No damage to the fetus has occurred since it is still a pelvic organ. Advised ice pack to the head for one half hour every 4 hours for the next day or so. Tylenol 650 mg every 6 hours. For headache relief. Departure - Departure Time of Disposition: 23:34 Disposition: Home, Self-Care 01 Condition: Fair Clinical Impression: First trimester Closed head injury without concussion Qualifiers: Encounter type: initial encounter Qualified Code(s): S09.90XA - Unspecified injury of head, initial encounter - Discharge Information Instructions: Head Injury, Adult, [id number] Referrals: PCP,None [Primary Care Provider] - Forms: ED Department Discharge Additional Instructions: Evaluation in the emergency room today in regards to a trip and fall at home with blunt trauma to the occipital scalp and head when you struck a wall when you lost her balance. This did not cause any loss of consciousness but it did cause a headache and swelling to the exceptional scalp. There is no evidence of concussion and was no loss of consciousness. In regards to first trimester at 12 weeks no injuries occurred to the fetus due to this fall as the fetus and uterus are well protected in the pelvis. Doppler ultrasound reveals good heart tones. The only medication that you can take safely in is Tylenol. You were given 975 mg of Tylenol in the ED. This was for headache relief. May continue to use 650 mg of Tylenol over 6 hours if needed for headache relief. Ice pack to the area for the next half hour a reduce the swelling and pain as well. You would need to follow-up with medical care if you had any nausea and vomiting over the next 24 hours seizure activity etc. This is felt to be highly unlikely to occur.
== END 2017-02-20 23:52 | disposition home or self-care (01) ==
LOC: JD.ED 23:07
DX: O9A.211 Injury, poisoning and certain other consequences of external causes complicating pregnancy, first trimester (principal); S00.03XA Contusion of scalp, initial encounter; Z3A.12 12 weeks gestation of pregnancy; Z88.8 Allergy status to other drugs, medicaments and biological substances; W01.0XXA Fall on same level from slipping, tripping and stumbling without subsequent striking against object, initial encounter
CPT/HCPCS: 99284; A9270; 99283

== ENCOUNTER 2017-02-22 16:34 | Emergency (ER) | payer MEDICAID ==
[2017-02-22 16:51] VITALS: BP 96/74
--- NOTE | 2017-02-22 16:52 | EDM.PDOC ---
ED HPI GENERAL MEDICAL PROBLEM - General Chief Complaint: Gastrointestinal Problem Stated Complaint: 12 WEEKS PREG/UNABLE TO KEEP ANYTHING DOWN Time Seen by Provider: 02/22/17 16:51 - History of Present Illness INITIAL COMMENTS - FREE TEXT/NARRATIVE: 21-year-old female now 12 weeks gestation presents with nausea vomiting. Patient has had recurrent problems with morning sickness. She has not been able to keep anything down today. She's had some abdominal discomfort as well. She has however not had any lower abdominal cramping or contractions. No vaginal discharge. Patient also complains of upper airway congestion and feels like she is coming down with a cold. She has some nasal congestion and postnasal drip. Abdominal Pain Score (Numeric/FACES): 8 - Related Data Allergies Allergy/AdvReac Type Severity Reaction Status Date / Time bismuth subsalicylate Allergy Vomiting Verified 02/22/17 16:47 [From Pepto-Bismol] Home Meds: Home Meds Vits #93/Iron Fum/FA [ Formula Tablet] 1 tab PO DAILY 02/03/17 [History] Cephalexin [Keflex] 500 mg PO Q6H #20 capsule 02/22/17 [Rx] Ondansetron [Zofran ODT] 4 mg PO Q4H #20 tab.dis 02/22/17 [Rx] Past Medical History - Past Health History Medical/Surgical History: Denies Medical/Surgical History 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 Gastrointestinal History: Reports: Other (See Below) Other Gastrointestinal History: history gastritis SOFTWARE LEAD History: Reports: - Past Surgical History Cardiovascular Surgical History: Reports: Other (See Below) Other Cardiovascular Surgeries/Procedures: 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 Denies: Ear Pain, Throat Pain Respiratory: Reports: Cough (Cough is fairly mild). Denies: Sputum Cardiovascular: Reports: No Symptoms GI/Abdominal: Reports: No Symptoms : Reports: No Symptoms Neurological: Reports: No Symptoms ED EXAM - Physical Exam Exam: See Below Exam Limited By: No Limitations General Appearance: Alert, No Apparent Distress Eye Exam: Bilateral Eye: EOMI, Normal Inspection, PERRL Ears: Normal External Exam, Normal Canal, Hearing Grossly Normal, Normal TMs Nose: Normal Inspection, Normal Mucosa, Clear Rhinorrhea Throat/Mouth: Normal Inspection, Normal Lips, Normal Teeth, Normal Gums, Normal Oropharynx, Normal Voice, No Airway Compromise Head: Atraumatic, Normocephalic Neck: Normal Inspection, Supple, Non-Tender, Full Range of Motion. No: Lymphadenopathy (L), Lymphadenopathy (R) Respiratory/Chest: No Respiratory Distress, Lungs Clear, Normal Breath Sounds Cardiovascular: Regular Rate, Rhythm, No Edema, No Murmur GI/Abdominal Exam: Normal Bowel Sounds, Soft, Other (Mild tenderness below her ribs no rebound or guarding noted heart tones are audible and 150 bpm by Doppler.) Back Exam: Normal Inspection. No: CVA Tenderness (L), CVA Tenderness (R) Course - Vital Signs Last Recorded V/S: Last Vital Signs Temp 36.8 C 02/22/17 16:48 Pulse 66 02/22/17 16:48 Resp 18 02/22/17 16:48 BP 96/74 02/22/17 16:48 Pulse Ox 100 02/22/17 16:48 - Orders/Labs/Meds Labs: Laboratory Tests 02/22/17 02/22/17 02/22/17 Range/Units 17:10 17:10 18:20 WBC 6.64 (3.98-10.04) K/mm3 RBC 4.19 (3.98-5.22) M/mm3 Hgb 12.9 (11.2-15.7) gm/L Hct 36.0 (34.1-44.9) % MCV 85.9 (79.4-94.8) fl MCH 30.8 (25.6-32.2) pg MCHC 35.8 H (32.2-35.5) g/dl RDW Std Deviation 42.6 (36.4-46.3) fL Plt Count 176 L (182-369) K/mm3 MPV 10.1 (9.4-12.3) fl Neutrophils % (Manual) 73 H (40-60) % Band Neutrophils % 0 (0-10) % Lymphocytes % (Manual) 17 L (20-40) % Atypical Lymphs % 0 % Monocytes % (Manual) 8 (2-10) % Eosinophils % (Manual) 1 (0.7-5.8) % Basophils % (Manual) 1 (0.1-1.2) Platelet Estimate Adequate RBC Morph Comment Normal Sodium 140 (136-145) mEq/L Potassium 3.7 (3.5-5.1) mEq/L Chloride 103 (98-107) mEq/L Carbon Dioxide 23 (21-32) mEq/L Anion Gap 17.7 H (5-15) BUN 4 L (7-18) mg/dL Creatinine 0.5 L (0.55-1.02) mg/dL Est Cr Clr Drug Dosing 173.50 mL/min Estimated GFR (MDRD) > 60 (>60) mL/min BUN/Creatinine Ratio 8.0 L (14-18) Glucose 84 (74-106) mg/dL Calcium 9.8 (8.5-10.1) mg/dL Total Bilirubin 0.9 (0.2-1.0) mg/dL AST 15 (15-37) U/L ALT 13 L (14-59) U/L Alkaline Phosphatase 48 (46-116) U/L Total Protein 7.1 (6.4-8.2) g/dl Albumin 4.1 (3.4-5.0) g/dl Globulin 3.0 gm/dL Albumin/Globulin Ratio 1.4 (1-2) Urine Color Yellow (Yellow) Urine Appearance Clear (Clear) Urine pH 7.0 (5.0-8.0) Ur Specific [place] 1.025 (1.005-1.030) Urine Protein Negative (Negative) Urine Glucose (UA) Negative (Negative) Urine Ketones 3+ H (Negative) Urine Occult Blood Trace-intact H (Negative) Urine Nitrite Negative (Negative) Urine Bilirubin Negative (Negative) Urine Urobilinogen 1.0 (0.2-1.0) Ur Leukocyte Esterase Trace H (Negative) Urine RBC 5-10 H (0-5) /hpf Urine WBC 0-5 (0-5) /hpf Ur Epithelial Cells 0-5 (0-5) /hpf Urine Bacteria Few (FEW) /hpf Urine Mucus Few (FEW) /hpf Meds: Medications Discontinued Medications Generic Name Dose Route Start Last Admin Trade Name Christopher PRN Reason Stop Dose Admin Lactated Ringer's 1,000 mls @ 999 mls/hr 02/22/17 17:05 02/22/17 17:18 Ringers, Lactated IV 02/22/17 18:05 999 mls/hr .BOLUS ONE Administration Ondansetron HCl 4 mg 02/22/17 17:16 02/22/17 17:20 Zofran IVPUSH 02/22/17 17:17 4 mg ONETIME ONE Administration - Re-Assessments/Exams Free Text/Narrative Re-Assessment/Exam: 02/22/17 19:32 She is doing much better after liter of fluids and some Zofran. Her urinalysis is more negative than positive however given her situation she should probably be started on antibiotics. I've recommended that she start Zofran 4 mg every 4 hours and then use Phenergan 12.5 every 6 hours as needed near concerned about the cost and would like to hold off on the Phenergan at this point. Patient will be started on Zofran as stated above and started on Keflex 500 4 times a day for 5 days. Case reviewed with Dr. Jose Cruz Sexton. Departure - Departure Time of Disposition: 19:10 Disposition: Home, Self-Care 01 Clinical Impression: Hyperemesis gravidarum - Discharge Information Prescriptions: Cephalexin [Keflex] 500 mg PO Q6H #20 capsule Ondansetron [Zofran ODT] 4 mg PO Q4H #20 tab.dis Referrals: PCP,None [Primary Care Provider] - Forms: ED Department Discharge Additional Instructions: Return to the emergency room with any questions problems or worsening symptoms. Follow-up with your OB on Friday as scheduled. You'll be started on Zofran, this is a nausea medication take one pill every 4 hours while awake. Push fluids as we discussed. Light small meals every few hours while awake start with soups and broths. You might have the beginning of a urinary tract infection you have been started on cephalexin this is an antibiotic take one 4 times a day for 5 days.
[2017-02-22] MEDS ORDERED: Lactated Ringers 1,000 ML IV ONE (17:05)
[2017-02-22] MEDS ORDERED: Ondansetron 4 MG/2 ML SDV IVPUSH ONE (17:16)
== END 2017-02-22 19:50 | disposition home or self-care (01) ==
LOC: JD.ED 16:34
DX: O21.0 Mild hyperemesis gravidarum (principal); Z98.890 Other specified postprocedural states; Z88.8 Allergy status to other drugs, medicaments and biological substances; Z3A.12 12 weeks gestation of pregnancy
CPT/HCPCS: 36415; 80053; 81001; 85025; 87086; 96361; 96374; 99284; J2405; J7120; 99283

== ENCOUNTER 2017-05-10 20:30 | Emergency (ER) | payer MEDICAID ==
[2017-05-10 20:48] VITALS: BP 108/60
--- NOTE | 2017-05-10 21:27 | EDM.PDOC ---
ED HPI GENERAL MEDICAL PROBLEM - General Chief Complaint: Abdominal Pain Stated Complaint: hot cold nausea shaking Time Seen by Provider: 05/10/17 20:38 Source of Information: Reports: Patient, Significant Other (Boyfriend) History Limitations: Reports: No Limitations - History of Present Illness INITIAL COMMENTS - FREE TEXT/NARRATIVE: The patient states that she is between 20 and 23 weeks gestation, her first . She states that she felt feverish, had nausea without emesis, felt lightheaded, only with standing, had a metallic taste in her mouth, and, her boyfriend says that she looks anxious in the face on off, all tonight. No prior similar symptoms. Here in the ED, the patient is found to be afebrile and hemodynamically stable. It is noted that her oxygen saturation is 100% on room air. The patient's Advertising Sales Executive is Dr. Sampson, however, the patient states that she had surgical repair of "2 holes in my heart" when she was an , therefore Dr. Sampson referred the patient to a high-risk Advertising Sales Executive through [facility], whom the patient saw yesterday. The patient does not recall that doctor's name. The patient states that she has undergone 4-5 ultrasounds this , demonstrating a single live intrauterine . The patient does not recall when her last menstrual period was. The patient is currently taking an [id number] vitamin - she is not sure if it contains folate or not. She was previously prescribed Zofran for morning sickness, but is currently out. The patient does not have a PCP, but hopes to establish a relationship with Dr. Jeff Bentley. Headache Pain Score (Numeric/FACES): 7 - Related Data Allergies Allergy/AdvReac Type Severity Reaction Status Date / Time bismuth subsalicylate Allergy Vomiting Verified 02/22/17 16:47 [From Pepto-Bismol] Home Meds: Home Meds Vits #93/Iron Fum/FA [ Formula Tablet] 1 tab PO DAILY 02/03/17 [History] Ondansetron [Zofran ODT] 1 tab PO Q8H PRN #10 tab.dis 05/10/17 [Rx] Past Medical History Gastrointestinal History: Reports: Gastritis ONCOLOGY NURSE NAVIGATOR History: Reports: : 1 Para: 0 - Past Surgical History Cardiovascular Surgical History: Reports: Other (See Below) (Repair of "2 holes in the heart" as an infant.) Social & Family History - Family History Family Medical History: Noncontributory - Tobacco Use Smoking Status *Q: Never Smoker Second Hand Smoke Exposure: No - Caffeine Use Caffeine Use: Reports: Coffee, Soda, Tea - Alcohol Use Alcohol Use History: No - Recreational Drug Use Recreational Drug Use: No - Living Situation & Occupation Living situation: Reports: Single, with Significant Other (Boyfriend) Occupation: Unemployed ED ROS GENERAL - Review of Systems Review Of Systems: ROS reveals no pertinent complaints other than HPI. ED EXAM, GENERAL - Physical Exam Exam: See Below Exam Limited By: No Limitations General Appearance: Alert, WD/WN, No Apparent Distress Eye Exam: Bilateral Eye: Normal Inspection Ears: Normal External Exam, Hearing Grossly Normal Nose: Normal Inspection, No Blood Throat/Mouth: Normal Inspection, Normal Lips, Normal Voice, No Airway Compromise Head: Atraumatic, Normocephalic Neck: Normal Inspection, Full Range of Motion Respiratory/Chest: No Respiratory Distress, Lungs Clear, Normal Breath Sounds, No Accessory Muscle Use Cardiovascular: Normal Peripheral Pulses, Regular Rate, Rhythm, No Gallop, No JVD, No Murmur, No Rub Peripheral Pulses: 4+: Radial (L), Radial (R) GI/Abdominal: Normal Bowel Sounds, Soft, Non-Tender, No Organomegaly, No Distention, No Abnormal Bruit, Other (Gravid uterus, consistent with an approximately 20 week ) (Female) Exam: Deferred Rectal (Female) Exam: Deferred Back Exam: Normal Inspection, Full Range of Motion. No: CVA Tenderness (L), CVA Tenderness (R) Extremities: Normal Inspection, Normal Range of Motion, No Pedal Edema, Normal Capillary Refill Neurological: Alert, Oriented, Normal Cognition, No Motor/Sensory Deficits Psychiatric: Normal Affect Skin Exam: Warm, Dry, Intact, Normal Color, No Rash Course - Vital Signs Last Recorded V/S: Last Vital Signs Temp 36.3 C 05/10/17 20:47 Pulse 77 05/10/17 20:47 Resp 20 05/10/17 20:47 BP 108/60 05/10/17 20:47 Pulse Ox 100 05/10/17 20:47 Orthostatic Blood Pressure [ 96/53 Standing] Orthostatic Blood Pressure [ 95/51 Sitting] Orthostatic Blood Pressure [ 101/53 Supine] - Orders/Labs/Meds Orders: Active Orders 24 hr Category Date Time Status Orthostatic Vital Signs [RC] STAT Care 05/10/17 21:11 Active Labs: Laboratory Tests 05/10/17 05/10/17 05/10/17 Range/Units 21:25 21:30 21:30 WBC 10.26 H (3.98-10.04) K/mm3 RBC 3.84 L (3.98-5.22) M/mm3 Hgb 12.0 (11.2-15.7) gm/L Hct 34.7 (34.1-44.9) % MCV 90.4 (79.4-94.8) fl MCH 31.3 (25.6-32.2) pg MCHC 34.6 (32.2-35.5) g/dl RDW Std Deviation 40.9 (36.4-46.3) fL Plt Count 203 (182-369) K/mm3 MPV 9.6 (9.4-12.3) fl Neutrophils % (Manual) 75 H (40-60) % Band Neutrophils % 1 (0-10) % Lymphocytes % (Manual) 13 L (20-40) % Atypical Lymphs % 0 % Monocytes % (Manual) 9 (2-10) % Eosinophils % (Manual) 1 (0.7-5.8) % Basophils % (Manual) 1 (0.1-1.2) Platelet Estimate Adequate RBC Morph Comment Normal Sodium 139 (136-145) mEq/L Potassium 3.6 (3.5-5.1) mEq/L Chloride 103 (98-107) mEq/L Carbon Dioxide 23 (21-32) mEq/L Anion Gap 16.6 H (5-15) BUN 8 (7-18) mg/dL Creatinine 0.4 L (0.55-1.02) mg/dL Est Cr Clr Drug Dosing 197.60 mL/min Estimated GFR (MDRD) > 60 (>60) mL/min BUN/Creatinine Ratio 20.0 H (14-18) Glucose 95 (74-106) mg/dL Calcium 9.0 (8.5-10.1) mg/dL Total Bilirubin 0.3 (0.2-1.0) mg/dL AST 15 (15-37) U/L ALT 16 (14-59) U/L Alkaline Phosphatase 75 (46-116) U/L Total Protein 6.8 (6.4-8.2) g/dl Albumin 3.3 L (3.4-5.0) g/dl Globulin 3.5 gm/dL Albumin/Globulin Ratio 0.9 L (1-2) Urine Color Yellow (Yellow) Urine Appearance Slt cloudy H (Clear) Urine pH 6.5 (5.0-8.0) Ur Specific [place] 1.025 (1.005-1.030) Urine Protein Negative (Negative) Urine Glucose (UA) Negative (Negative) Urine Ketones Trace H (Negative) Urine Occult Blood Trace-intact H (Negative) Urine Nitrite Negative (Negative) Urine Bilirubin Negative (Negative) Urine Urobilinogen 1.0 (0.2-1.0) Ur Leukocyte Esterase 1+ H (Negative) Urine RBC 10-20 H (0-5) /hpf Urine WBC 5-10 H (0-5) /hpf Ur Epithelial Cells 5-10 H (0-5) /hpf Urine Bacteria Few (FEW) /hpf Urine Mucus Not seen (FEW) /hpf - Re-Assessments/Exams Free Text/Narrative Re-Assessment/Exam: 05/10/17 21:39 The patient is not orthostatic. 05/10/17 22:54 Test results discussed with the patient and her boyfriend. Today's workup is unremarkable. No sign of an infection, anemia, electrolyte abnormality, orthostasis, or UTI. I am not sure if the symptoms that the patient has been experiencing is related to her or not, but I am recommending that she stay well hydrated over the weekend, and if she is still symptomatic by Friday, that she contact Dr. Sampson. I will electronically send a prescription for Zofran to [facility], the only pharmacy that will be open tomorrow. The patient prefers this over [facility]. Departure - Departure Time of Disposition: 22:55 Disposition: Home, Self-Care 01 Condition: Good Clinical Impression: Malaise - Discharge Information Referrals: Sharyn Sampson MD [Primary Care Provider] - Forms: ED Department Discharge Additional Instructions: You were seen in the emergency room for feeling feverish, nausea, lightheaded, having a metallic taste in your mouth, and looking pinkish, tonight. Workup in the ER included blood work, a urinalysis, and positional blood pressure checks. Your entire workup was unremarkable. There is no sign of an infection. You are not anemic. No significant electrolyte abnormalities. You are not dehydrated or intravascularly depleted. The cause of your symptoms is unclear, and it is not necessarily related to your . We recommend you stay well hydrated over the weekend. A prescription for the anti-nausea medicine Zofran has been sent to [facility], [address] They will be open tomorrow (05/11/2017) between noon and 4:00 PM. Dissolve 1 tablet on your tongue up to every 8 hours, as needed for nausea/vomiting. If you are still feeling symptomatic by 05/12/2017, we recommend that you follow-up with your Advertising Sales Executive, Dr. Sampson. If any other problems, please do not hesitate to return to the ER. - My Orders Last 24 Hours: My Active Orders 05/10/17 21:11 Orthostatic Vital Signs [RC] STAT - Assessment/Plan Last 24 Hours: My Active Orders 05/10/17 21:11 Orthostatic Vital Signs [RC] STAT
[2017-05-10] MEDS ORDERED: Ondansetron 4 MG Tab.DIS PO ONE (22:56)
== END 2017-05-10 23:08 | disposition home or self-care (01) ==
LOC: JD.ED 20:30
DX: O99.89 Other specified diseases and conditions complicating pregnancy, childbirth and the puerperium (principal); R53.81 Other malaise; Z88.8 Allergy status to other drugs, medicaments and biological substances
CPT/HCPCS: 36415; 80053; 81001; 85025; 99283; A9270